=== PATIENT | female | born 1965 | race Caucasian/White ===

== ENCOUNTER 2017-02-23 12:31 | Emergency (ER) | payer OTHER ==
[~2017-02-23] VITALS: Ht 165.1 cm; Wt 112.5 kg
[~2017-02-23 12:31] MED LIST: AMBIEN10 MG PO; BACTROBAN OINT22 GM PO; BACTROBAN21 NS; CIPRO500 MG PO; CLINDAMYCIN HC300 MG PO; DAYPRO600 M1 PO; FLAGYL500 MG PO; HYDROCODONE BIT1 T11 PO; KEFLEX500 MG PO; KETOROLAC10 MG PO; LANTUS100 U/ML SC; MEDROL DOSEPAK4 MG PO; MOTRIN800 MG PO; NEURONTIN300 MG PO; NEXIUM40 MG PO; PROTONIX40 MG PO; ROBITUSSIN DM 105 ML PO; SEROQUEL XR400 MG PO; SKELAXIN800 MG PO; SYNTHROID0.05 MG PO; TRAMADOL HCL50 MG PO; VICODIN 5/500 505 MG PO; VICODIN 500 MG-1 TAB PO; VICODIN HP 6601 TA1 PO; XANAX XR2 MG PO; ZITHROMAX250 MG PO
[2017-02-23] MEDS ORDERED: HYDROCODONE BIT1 T11 PO (14:56)
== END 2017-02-23 15:05 | disposition home or self-care (01) ==
LOC: ED 12:31
DX: S20.219A Contusion of unspecified front wall of thorax, initial encounter (principal); F17.200 Nicotine dependence, unspecified, uncomplicated; Z88.2 Allergy status to sulfonamides; Z79.4 Long term (current) use of insulin; Z79.899 Other long term (current) drug therapy; W11.XXXA Fall on and from ladder, initial encounter; Y93.89 Activity, other specified; Y92.9 Unspecified place or not applicable; Y99.9 Unspecified external cause status

== ENCOUNTER → 2017-02-27 | Outpatient (CLI) | payer OTHER ==
[2017-02-27 12:01] LABS: HEMATOCRIT 42.9 % (37.0-47.0); HEMOGLOBIN 14.3 g/dl (12.0-16.0); MEAN CELL VOLUME 90.7 fl (81.0-99.0); MEAN CORPUSCULAR HGB 30.2 pg (27.0-31.0); MEAN CORPUSCULAR HGB CONC 33.3 g/dl (33.0-37.0); MEAN PLATELET VOLUME 10.8 fl (9.6-12.3); PLATELET COUNT AUTOMATED 234 10*3/uL (130-400); RED BLOOD COUNT 4.73 10*6/uL (4.10-5.10); RED CELL DISTRI WIDTH 14.6 % (0-14.5); WHITE BLOOD COUNT 8.1 10*3/uL (4.8-10.8)
[2017-02-27 12:21] LABS: INTERNATIONAL NORM RATIO 0.9 (2.0-3.5); PROTHROMBIN TIME 9.8 SECONDS (9.0-12.4)
[2017-02-27 12:22] LABS: EOSINOPHIL # 0.2 10*3/uL (0-0.4); EOSINOPHILS 3 % (1-4); LYMPHOCYTE # 1.2 10*3/uL (1.3-4.4); MONOCYTE # 0.5 10*3/uL (0.1-1.0); NEUTROPHIL # 6.2 10*3/uL (2.3-7.9); NEUTROPHILS 76 % (47-73); PLATELET SUFFICIENCY NORMAL (NORMAL); TOTAL CELLS COUNTED 100 #CELLS
[2017-02-27 12:23] LABS: ALBUMIN 3.5 gm/dl (3.1-4.5); ALKALINE PHOSPHATASE 316 U/L (45-117); BILIRUBIN, TOTAL 1.5 mg/dl (0.2-1.0); BUN 17 mg/dl (7-24); CARBON DIOXIDE 21 mmol/L (21-32); CHLORIDE 109 mmol/L (98-107); CHOLESTEROL 264 mg/dL (<200); EST GLOM FILT AFRICAN AMERICAN > 60 ml/min; GLUCOSE 107 mg/dL (65-99); HDL CHOLESTEROL 57 mg/dl (40-60); LDL CHOLESTEROL 175 mg/dL (9-159); POTASSIUM 4.4 mmol/L (3.5-5.1); SGOT/AST 419 IU/L (3-35); SGPT/ALT 530 U/L (12-78); SODIUM 138 mmol/L (136-145); TOTAL PROTEIN 7.4 gm/dL (6.4-8.2); TRIGLYCERIDES 158 mg/dl (<150); VLDL CHOLESTEROL 32 mg/dL (6-40)
== END | disposition home or self-care (01) ==
LOC: MRI 01-20 13:00 → LAB 10:34 → MRI 10:34
PROVIDERS: Physician Assistant
DX: M17.11 Unilateral primary osteoarthritis, right knee (principal); M23.51 Chronic instability of knee, right knee; M54.9 Dorsalgia, unspecified; E66.01 Morbid (severe) obesity due to excess calories; M23.91 Unspecified internal derangement of right knee; R79.89 Other specified abnormal findings of blood chemistry

== ENCOUNTER → 2017-03-03 | Outpatient (CLI) | payer OTHER ==
[2017-03-03 06:30] LABS: BASO % 0.4 % (0.0-1.0); EOS # 0.1 10*3/uL (0.0-0.4); EOS % 1.8 % (1.0-4.0); HEMATOCRIT 44.3 % (37.0-47.0); HEMOGLOBIN 14.5 g/dl (12.0-16.0); LYMPH # 2.1 10*3/uL (1.3-4.4); LYMPH % 26.5 % (27.0-41.0); MEAN CELL VOLUME 91.3 fl (81.0-99.0); MEAN CORPUSCULAR HGB 29.9 pg (27.0-31.0); MEAN CORPUSCULAR HGB CONC 32.7 g/dl (33.0-37.0); MEAN PLATELET VOLUME 10.9 fl (9.6-12.3); MONO # 0.8 10*3/uL (0.1-1.0); MONO % 10.6 % (3.0-9.0); NEUT # 4.8 10*3/uL (2.3-7.9); NEUT % 60.3 % (47.0-73.0); PLATELET COUNT AUTOMATED 272 10*3/uL (130-400); RED BLOOD COUNT 4.85 10*6/uL (4.10-5.10); RED CELL DISTRI WIDTH 15.4 % (0-14.5); WHITE BLOOD COUNT 7.9 10*3/uL (4.8-10.8)
[2017-03-03 07:07] LABS: ALBUMIN 3.3 gm/dl (3.1-4.5); BUN 19 mg/dl (7-24); CARBON DIOXIDE 23 mmol/L (21-32); CHLORIDE 109 mmol/L (98-107); EST GLOM FILT AFRICAN AMERICAN > 60 ml/min; GLUCOSE 108 mg/dL (65-99); POTASSIUM 4.2 mmol/L (3.5-5.1); SGOT/AST 375 IU/L (3-35); SGPT/ALT 505 U/L (12-78); SODIUM 138 mmol/L (136-145)
[2017-03-03 07:09] LABS: ALKALINE PHOSPHATASE 508 U/L (45-117); BILIRUBIN, TOTAL 0.7 mg/dl (0.2-1.0); TOTAL PROTEIN 7.6 gm/dL (6.4-8.2)
[2017-03-04 07:07] LABS: HEPATITIS C VIRUS ANTIBODY <0.1 s/co (0.0-0.9)
== END | disposition home or self-care (01) ==
LOC: LAB 05:15 → US 06:00
PROVIDERS: Nurse Practitioner Family
DX: K82.0 Obstruction of gallbladder (principal); R94.5 Abnormal results of liver function studies; I10 Essential (primary) hypertension

== ENCOUNTER → 2017-05-04 | Outpatient (CLI) | payer OTHER | END | disposition home or self-care (01) | LOC: LAB 14:42 | DX: R94.5 Abnormal results of liver function studies (principal) ==

== ENCOUNTER → 2017-06-01 | Outpatient (CLI) | payer OTHER | END | disposition home or self-care (01) | LOC: NM 05-14 07:00 | DX: R93.8 Abnormal findings on diagnostic imaging of other specified body structures (principal) ==

== ENCOUNTER → 2017-06-11 | Day surgery (SDC) | payer OTHER ==
[2017-06-10 11:38] LABS: BILIRUBIN NEGATIVE (NEGATIVE); BLOOD TRACE-INTACT (NEGATIVE); CLARITY CLEAR (CLEAR); COLOR YELLOW (YELLOW); GLUCOSE NEGATIVE (NEGATIVE); KETONE NEGATIVE (NEGATIVE); LEUKO ESTERASE NEGATIVE (NEGATIVE); NITRITE NEGATIVE (NEGATIVE); PH 5.5 (5.0-9.0); UROBILINOGEN 0.2 E.U./dl (0.2-1.0)
[2017-06-10 11:42] LABS: BASO % 0.3 % (0.0-1.0); EOS # 0.1 10*3/uL (0.0-0.4); EOS % 1.3 % (1.0-4.0); HEMATOCRIT 42.9 % (37.0-47.0); HEMOGLOBIN 14.2 g/dl (12.0-16.0); LYMPH # 2.8 10*3/uL (1.3-4.4); LYMPH % 26.6 % (27.0-41.0); MEAN CELL VOLUME 90.7 fl (81.0-99.0); MEAN CORPUSCULAR HGB CONC 33.1 g/dl (33.0-37.0); MEAN PLATELET VOLUME 10.1 fl (9.6-12.3); MONO # 0.7 10*3/uL (0.1-1.0); MONO % 6.9 % (3.0-9.0); NEUT # 6.8 10*3/uL (2.3-7.9); NEUT % 64.5 % (47.0-73.0); PLATELET COUNT AUTOMATED 310 10*3/uL (130-400); RED BLOOD COUNT 4.73 10*6/uL (4.10-5.10); WHITE BLOOD COUNT 10.6 10*3/uL (4.8-10.8)
[2017-06-10 11:46] LABS: BACTERIA TRACE
[2017-06-10 12:09] LABS: INTERNATIONAL NORM RATIO 0.9 (2.0-3.5)
[2017-06-10 12:10] LABS: ALBUMIN 3.4 gm/dl (3.1-4.5); ALKALINE PHOSPHATASE 118 U/L (45-117); BILIRUBIN, DIRECT < 0.1 mg/dL (0.0-0.2); BUN 22 mg/dl (7-24); CHLORIDE 106 mmol/L (98-107); POTASSIUM 4.6 mmol/L (3.5-5.1); SGOT/AST 11 IU/L (3-35); SGPT/ALT 20 U/L (12-78); SODIUM 139 mmol/L (136-145); TOTAL PROTEIN 7.6 gm/dL (6.4-8.2)
[~2017-06-11] VITALS: Ht 160 cm; Wt 126.6 kg
[~2017-06-11] MED LIST changes: +AMLODIPINE BESYL5 MG PO; +NORCO 7.5-3251 EACH PO
--- NOTE | ~2017-06-11 | O ---
[place], [place] OPERATIVE NOTE NAME: PATRICIA CASTREJON [facility] #: [id number] UNIT #: [id number] ROOM: DOCTOR: EVGENY GARCIA MD BIRTHDATE: [birth year] DOS: 06/11/2017 PREOPERATIVE DIAGNOSIS: Chronic cholecystitis. POSTOPERATIVE DIAGNOSIS: Chronic cholecystitis. PROCEDURE: Laparoscopic cholecystectomy. SURGEON: Evgeny Garcia MD ENGRAVER RUBBER: MANDA. ANESTHESIA: General with endotracheal intubation. INDICATIONS: This is a 52-year-old lady with a history of abdominal pain and was found to have chronic cholecystitis, who is here for the above-mentioned procedure. The procedure and its complications explained to the patient in detail. Complications that were discussed included but were not limited to bleeding, infection, hematoma/seroma/abscess formation, biloma formation, inadvertent injury to common bile duct and incisional hernia formation. She agreed to proceed. DESCRIPTION OF PROCEDURE: After identifying the patient, the patient was brought to the operating suite and laid in the supine position. After induction of general anesthesia, the parts were then painted and draped in the usual sterile fashion. A timeout procedure was called. A subumbilical incision in a transverse fashion was made. The skin and the subcutaneous tissue were incised. The fascia was grasped and incised vertically and 2 stay sutures were taken. The peritoneum was opened and a 12 mm Jazmyn port was introduced. A pneumoperitoneum was created and under direct vision, an epigastric incision of 10 mm and two 5 mm incisions were made in the right upper quadrant. The gallbladder was found to be extremely small and adhesed to the overlying bowel, which was taken down carefully with the help of blunt and sharp dissection. Thereafter, the gallbladder was retracted superiorly and laterally. Under direct vision, the cystic duct and the cystic artery were carefully dissected, each of these structures were clipped 3 times and cut between the first and the second clip. The gallbladder was then removed from the bed of the gallbladder with the help of electrocautery and sent for histopathological diagnosis. Hemostasis was achieved in the liver bed and saline was used for irrigation. After hemostasis was confirmed, the irrigation fluid was sucked away. At this point, the right upper quadrant and the epigastric ports were removed. There was no bleeding seen. The umbilical port was also removed and the pneumoperitoneum was decompressed. The 2 stay sutures were tied together and an additional 0 Vicryl suture was taken to close the fascia. Thereafter, local anesthesia was infiltrated in the form of 1% lidocaine to all the skin edges and they were then approximated with the help of 4-0 Vicryl in a subcuticular running fashion. Dressings were placed on all 4 incisions. The patient was extubated uneventfully and brought back to the recovery room in a stable fashion. There were no complications. Dr. Evgeny Garcia, the attending surgeon, was present throughout the operating case. [place], [place] OPERATIVE NOTE NAME: PATRICIA CASTREJON UNIT #: [id number] ROOM: DOCTOR: EVGENY GARCIA MD BIRTHDATE: [birth year] Evgeny Garcia MD CM:OPRECORD:OPERATIVE NOTE [id number] EVGENY GARCIA MD 06/11/17 1442 interface
[2017-06-11 09:41] VITALS: BP 102/59
[2017-06-11 12:33] VITALS: BP 145/89
[2017-06-11 12:45] VITALS: BP 138/87
[2017-06-11 12:58] VITALS: BP 132/70
[2017-06-11 13:13] VITALS: BP 137/76
[2017-06-11 13:32] VITALS: BP 122/56
== END | disposition home or self-care (01) ==
LOC: SDC 06-10 11:00
PROVIDERS: Surgery
DX: K81.1 Chronic cholecystitis (principal); I10 Essential (primary) hypertension; K21.9 Gastro-esophageal reflux disease without esophagitis; F17.210 Nicotine dependence, cigarettes, uncomplicated; J44.9 Chronic obstructive pulmonary disease, unspecified; E07.9 Disorder of thyroid, unspecified; E66.9 Obesity, unspecified; Z79.899 Other long term (current) drug therapy; Z88.1 Allergy status to other antibiotic agents; Z68.42 Body mass index [BMI] 45.0-49.9, adult; Z86.14 Personal history of Methicillin resistant Staphylococcus aureus infection; Z98.51 Tubal ligation status

== ENCOUNTER → 2017-10-30 | Outpatient (CLI) | payer OTHER ==
[2017-10-30 11:34] LABS: BASO # 0.1 10*3/uL (0.0-0.1); BASO % 0.5 % (0.0-1.0); EOS # 0.1 10*3/uL (0.0-0.4); EOS % 1.1 % (1.0-4.0); HEMATOCRIT 41.4 % (37.0-47.0); HEMOGLOBIN 13.4 g/dl (12.0-16.0); LYMPH # 2.9 10*3/uL (1.3-4.4); LYMPH % 29.1 % (27.0-41.0); MEAN CELL VOLUME 88.5 fl (81.0-99.0); MEAN CORPUSCULAR HGB 28.6 pg (27.0-31.0); MEAN CORPUSCULAR HGB CONC 32.4 g/dl (33.0-37.0); MEAN PLATELET VOLUME 10.5 fl (9.6-12.3); MONO # 1.1 10*3/uL (0.1-1.0); MONO % 11.3 % (3.0-9.0); NEUT # 5.6 10*3/uL (2.3-7.9); NEUT % 57.6 % (47.0-73.0); PLATELET COUNT AUTOMATED 239 10*3/uL (130-400); RED BLOOD COUNT 4.68 10*6/uL (4.10-5.10); RED CELL DISTRI WIDTH 15.7 % (0-14.5); WHITE BLOOD COUNT 9.8 10*3/uL (4.8-10.8)
[2017-10-30 11:50] LABS: ALBUMIN 3.3 gm/dl (3.1-4.5); ALKALINE PHOSPHATASE 114 U/L (45-117); BUN 26 mg/dl (7-24); CHLORIDE 106 mmol/L (98-107); CHOLESTEROL 262 mg/dL (<200); CREATININE 0.93 mg/dL (0.55-1.02); HDL CHOLESTEROL 56 mg/dl (40-60); LDL CHOLESTEROL 143 mg/dL (9-159); POTASSIUM 4.6 mmol/L (3.5-5.1); SGOT/AST 20 IU/L (3-35); SGPT/ALT 28 U/L (12-78); SODIUM 138 mmol/L (136-145); TOTAL PROTEIN 7.4 gm/dL (6.4-8.2); TRIGLYCERIDES 317 mg/dl (<150); VLDL CHOLESTEROL 63 mg/dL (6-40)
== END | disposition home or self-care (01) ==
LOC: LAB 01:32
PROVIDERS: Nurse Practitioner Family
DX: I10 Essential (primary) hypertension (principal); E55.9 Vitamin D deficiency, unspecified; R74.8 Abnormal levels of other serum enzymes

== ENCOUNTER 2018-07-06 12:58 | Emergency (ER) | payer OTHER ==
[~2018-07-06] VITALS: Ht 162.5 cm; Wt 122.5 kg
[2018-07-06] MEDS ORDERED: CLINDAMYCIN HC300 MG PO (16:09)
[2018-07-06] MEDS ORDERED: NAPROSYN500 MG PO (16:10)
== END 2018-07-06 16:24 | disposition left against medical advice (07) ==
LOC: ED 12:58
DX: T14.8XXA Other injury of unspecified body region, initial encounter (principal); L02.413 Cutaneous abscess of right upper limb; M54.5 Low back pain; R07.81 Pleurodynia; M25.561 Pain in right knee; Z88.2 Allergy status to sulfonamides; Z79.899 Other long term (current) drug therapy; W10.8XXA Fall (on) (from) other stairs and steps, initial encounter; Y93.89 Activity, other specified; Y92.89 Other specified places as the place of occurrence of the external cause; Y99.8 Other external cause status

== ENCOUNTER 2018-07-18 16:24 | Emergency (ER) | payer OTHER ==
[~2018-07-18] VITALS: Ht 162.5 cm; Wt 122.5 kg
[~2018-07-18 16:24] MED LIST changes: +NAPROSYN500 MG PO
== END 2018-07-18 18:23 | disposition home or self-care (01) ==
LOC: ED 16:24
DX: S39.012A Strain of muscle, fascia and tendon of lower back, initial encounter (principal); S89.91XA Unspecified injury of right lower leg, initial encounter; Z88.2 Allergy status to sulfonamides; Z79.899 Other long term (current) drug therapy; W01.0XXA Fall on same level from slipping, tripping and stumbling without subsequent striking against object, initial encounter; Y93.89 Activity, other specified; Y92.512 Supermarket, store or market as the place of occurrence of the external cause; Y99.8 Other external cause status

== ENCOUNTER 2019-06-13 19:44 | Emergency (ER) | payer OTHER ==
[~2019-06-13] VITALS: Ht 165.1 cm; Wt 148.8 kg
== END 2019-06-13 21:30 | disposition home or self-care (01) ==
LOC: ED 19:44
DX: S86.911A Strain of unspecified muscle(s) and tendon(s) at lower leg level, right leg, initial encounter (principal); K21.9 Gastro-esophageal reflux disease without esophagitis; J44.9 Chronic obstructive pulmonary disease, unspecified; E07.9 Disorder of thyroid, unspecified; Z88.2 Allergy status to sulfonamides; Z79.2 Long term (current) use of antibiotics; Z79.899 Other long term (current) drug therapy; W01.0XXA Fall on same level from slipping, tripping and stumbling without subsequent striking against object, initial encounter; Y93.89 Activity, other specified; Y92.89 Other specified places as the place of occurrence of the external cause; Y99.8 Other external cause status

== ENCOUNTER → 2021-11-08 | Outpatient (CLI) | payer OTHER | END | disposition home or self-care (01) | LOC: MRI 07-12 00:09 | PROVIDERS: ATTEND Orthopaedic Surgery | DX: S83.511A Sprain of anterior cruciate ligament of right knee, initial encounter (principal); M17.11 Unilateral primary osteoarthritis, right knee; M25.461 Effusion, right knee; M71.21 Synovial cyst of popliteal space [Baker], right knee; M23.8X1 Other internal derangements of right knee; X58.XXXA Exposure to other specified factors, initial encounter; Y93.89 Activity, other specified; Y92.89 Other specified places as the place of occurrence of the external cause; Y99.8 Other external cause status ==

== ENCOUNTER → 2022-06-04 | Outpatient (CLI) | payer OTHER | END | disposition home or self-care (01) | LOC: ORTHO 12:54 | PROVIDERS: ATTEND Orthopaedic Surgery | DX: M25.561 Pain in right knee (principal) ==

== ENCOUNTER → 2022-07-04 | Outpatient (CLI) | payer OTHER ==
[~2022-07-04] MED LIST changes: +Percocet 325 MG1 TAB PO; +VENT7GM INH
[2022-07-04 12:35] LABS: BASO % 0.4 % (0.0-1.0); EOS # 0.1 10*3/uL (0.0-0.4); EOS % 1.1 % (1.0-4.0); HEMATOCRIT 51.8 % (37.0-47.0); LYMPH # 2.4 10*3/uL (1.3-4.4); MEAN CORPUSCULAR HGB 30.1 pg (27.0-31.0); MONO # 0.7 10*3/uL (0.1-1.0); MONO % 7.4 % (3.0-9.0); NEUT # 6.3 10*3/uL (2.3-7.9); NEUT % 65.7 % (47.0-73.0); PLATELET COUNT AUTOMATED 300 10*3/uL (130-400); RED BLOOD COUNT 5.69 10*6/uL (4.10-5.10); RED CELL DISTRI WIDTH 14.1 % (0-14.5); WHITE BLOOD COUNT 9.6 10*3/uL (4.8-10.8)
[2022-07-04 13:12] LABS: ALKALINE PHOSPHATASE 125 U/L (45-117); BUN 23 mg/dl (7-24); CHLORIDE 105 mmol/L (98-107); CHOLESTEROL 254 mg/dL (<200); CREATININE 0.88 mg/dL (0.55-1.02); LDL CHOLESTEROL 169 mg/dL (9-159); POTASSIUM 5.2 mmol/L (3.5-5.1); SGPT/ALT 34 U/L (12-78); SODIUM 134 mmol/L (136-145); TOTAL PROTEIN 7.8 gm/dL (6.4-8.2); TRIGLYCERIDES 198 mg/dl (<150)
[2022-07-04 13:32] LABS: FREE T4 0.63 ng/dl (0.76-1.46)
[2022-07-04 14:13] LABS: VITAMIN D, 25-HYDROXY 17.9 ng/mL (30-100)
== END ==
LOC: LAB 11:32
PROVIDERS: ATTEND Internal Medicine
DX: Z01.818 Encounter for other preprocedural examination (principal); F41.9 Anxiety disorder, unspecified; J44.9 Chronic obstructive pulmonary disease, unspecified; F32.9 Major depressive disorder, single episode, unspecified; M19.90 Unspecified osteoarthritis, unspecified site; Z79.899 Other long term (current) drug therapy

== ENCOUNTER → 2022-07-08 | Outpatient (CLI) | payer OTHER ==
[~2022-07-08] MED LIST changes: +PERCOCET 5-3251 EACH PO
== END | disposition home or self-care (01) ==
LOC: LAB 03:00
PROVIDERS: ATTEND Orthopaedic Surgery
DX: I10 Essential (primary) hypertension (principal)

== ENCOUNTER → 2022-07-24 | Day surgery (SDC) | payer OTHER ==
[2022-07-04 12:00] VITALS: BP 93/78
[2022-07-08 08:59] LABS: BILIRUBIN Negative (Negative); BLOOD Negative (Negative); CLARITY Cloudy (Clear); COLOR Yellow (Yellow); GLUCOSE Negative (Negative); KETONE Trace (Negative); LEUKO ESTERASE Negative (Negative); NITRITE Negative (Negative); PH 5.5 (4.5-8.0); SPECIFIC GRAVITY >= 1.030 (1.001-1.030)
[2022-07-08 09:00] VITALS: BP 127/81
[2022-07-08 09:33] LABS: BACTERIA 2+; MUCOUS 3+
[~2022-07-24] VITALS: Ht 160 cm; Wt 141.1 kg
[2022-07-24 09:00] VITALS: BP 104/64
[2022-07-24 14:00] LABS: HEMATOCRIT 42.7 % (37.0-47.0)
[2022-07-24 14:18] VITALS: BP 155/85
[2022-07-24 14:20] VITALS: BP 150/77
[2022-07-24 14:35] VITALS: BP 153/81
[2022-07-24 14:50] VITALS: BP 148/78
[2022-07-24 15:05] VITALS: BP 134/68
== END | disposition home or self-care (01) ==
LOC: SDC 07-04 12:30
PROVIDERS: ATTEND Orthopaedic Surgery
DX: S83.511A Sprain of anterior cruciate ligament of right knee, initial encounter (principal); S83.211A Bucket-handle tear of medial meniscus, current injury, right knee, initial encounter; S83.281A Other tear of lateral meniscus, current injury, right knee, initial encounter; K21.9 Gastro-esophageal reflux disease without esophagitis; F17.210 Nicotine dependence, cigarettes, uncomplicated; I10 Essential (primary) hypertension; J44.9 Chronic obstructive pulmonary disease, unspecified; X58.XXXA Exposure to other specified factors, initial encounter; Y93.89 Activity, other specified; Y92.89 Other specified places as the place of occurrence of the external cause; Y99.8 Other external cause status